=== PATIENT | female | born 1945 | race Caucasian/White ===

== ENCOUNTER → 2016-07-10 | Outpatient (CLI) | payer MEDICARE, BC ==
[~2016-07-10] MED LIST: ALPR-475 PO; AMLO-280 PO; ASPI325T4 PO; ASPI325T92 PO; DEXL60CA PO; DOCU-30 PO; FEOSOL PO; FESO8TAB PO; FLUO20TA25 PO; IBUP200C8 PO; ONDA4TAB7 PO; OXYC5CAP4 PO; PRAM1TAB PO
== END | disposition home or self-care (01) ==
LOC: CFH 14:24
PROVIDERS: ATTEND Orthopaedic Surgery Adult Reconstructive Orthopaedic Surgery
DX: M79.662 Pain in left lower leg (principal); M17.12 Unilateral primary osteoarthritis, left knee